=== PATIENT | male | born 1995 | race Caucasian/White ===

== ENCOUNTER 2018-07-27 06:29 | Emergency (ER) | payer OTHER ==
[~2018-07-27] VITALS: Ht 182.9 cm; Wt 90.7 kg
[~2018-07-27 06:29] MED LIST: AMIT10; AMOX500 PO; CEPH500 PO; CRUTCH4 USE; CYCL10 PO; HYDACE5 PO; IBUP200 PO; LORTAB 10 MG-3473 ML PO; OXYACE5T PO; PENVK500 PO; PERM5TC TOP; PRED20 PO; Percocet 10-321 EACH PO; SULTRIDS PO
[2018-07-27] MEDS ORDERED: Augmentin 500-1 EACH PO (07:07)
== END 2018-07-27 07:40 | disposition home or self-care (01) ==
LOC: ER 06:29
DX: K02.9 Dental caries, unspecified (principal); F17.200 Nicotine dependence, unspecified, uncomplicated
CPT/HCPCS: 96372; 99282; J1885

== ENCOUNTER 2019-11-08 01:22 | Emergency (ER) | payer OTHER ==
[~2019-11-08] VITALS: Ht 182.9 cm; Wt 81.7 kg
[~2019-11-08 01:22] MED LIST changes: +Augmentin 500-1 EACH PO
[2019-11-08 01:40] LABS: Calcium, Ionized (POC) 1.21 mmol/L (1.10-1.46); Chloride (POC) 103 mmol/L (98-108); Creatinine (POC) 0.8 mg/dL (0.8-1.3); Glucose (ISTAT POC) 87 mg/dL (70-99); Hemoglobin (POC) 14.6 g/dL (13.5-17.5); Sodium (POC) 138 mmol/L (135-148); Total CO2 (POC) 26 mmol/L (21-32)
[2019-11-08] MEDS ORDERED: NARCAN4 MG (02:35)
[2019-11-08] MEDS ORDERED: ONDA4ODT MM (02:43)
== END 2019-11-08 02:48 | disposition home or self-care (01) ==
LOC: ER 01:22
PROVIDERS: Emergency Medicine
DX: T40.1X1A Poisoning by heroin, accidental (unintentional), initial encounter (principal); F17.210 Nicotine dependence, cigarettes, uncomplicated
CPT/HCPCS: 80047; 85014; 99284; A9270-GY

== ENCOUNTER 2020-01-24 03:45 | Emergency (ER) | payer SELFPAY ==
[~2020-01-24] VITALS: Ht 182.9 cm; Wt 81.7 kg
[~2020-01-24 03:45] MED LIST changes: +NARCAN4 MG; +ONDA4ODT MM
== END 2020-01-24 05:35 | disposition home or self-care (01) ==
LOC: ER 03:45
DX: J06.9 Acute upper respiratory infection, unspecified (principal); Z79.899 Other long term (current) drug therapy; F17.210 Nicotine dependence, cigarettes, uncomplicated
CPT/HCPCS: 71046; 99283-25

== ENCOUNTER 2020-08-17 09:43 | Emergency (ER) | payer OTHER ==
[~2020-08-17] VITALS: Ht 182.9 cm; Wt 83.9 kg
[2020-08-17] MEDS ORDERED: Flagyl500 MG PO (10:05)
== END 2020-08-17 10:10 | disposition home or self-care (01) ==
LOC: ER 09:43
DX: Z20.2 Contact with and (suspected) exposure to infections with a predominantly sexual mode of transmission (principal); F17.210 Nicotine dependence, cigarettes, uncomplicated; Z79.899 Other long term (current) drug therapy
CPT/HCPCS: 99282

== ENCOUNTER 2021-10-25 02:30 | Emergency (ER) | payer OTHER ==
[~2021-10-25] VITALS: Ht 182.9 cm; Wt 79.4 kg
[~2021-10-25 02:30] MED LIST changes: +Flagyl500 MG PO
== END 2021-10-25 03:55 | disposition left against medical advice (07) ==
LOC: ER 02:30
DX: Z53.21 Procedure and treatment not carried out due to patient leaving prior to being seen by health care provider (principal)

== ENCOUNTER 2021-12-01 15:43 | Emergency (ER) | payer OTHER ==
[~2021-12-01] VITALS: Ht 182.9 cm; Wt 83.9 kg
[2021-12-01] MEDS ORDERED: Mupirocin22 GM TOP (16:54)
== END 2021-12-01 17:20 | disposition home or self-care (01) ==
LOC: ER 15:43
DX: L73.9 Follicular disorder, unspecified (principal); F17.210 Nicotine dependence, cigarettes, uncomplicated
CPT/HCPCS: 99282